=== PATIENT | female | born 1995 | race Caucasian/White ===

== ENCOUNTER 2018-07-24 11:24 | Inpatient (IN) | payer OTHER ==
[2018-07-24] MEDS ORDERED: OXYTOCIN 30 UNITS/LR 500 ML IV ×2 (12:00→17:00)
[2018-07-24] MEDS ORDERED: BUTORPHANOL 2 MG INJ IV (12:00)
[2018-07-24] MEDS ORDERED: MISOPROSTOL 200 MCG TAB PR ×2 (12:00→17:00)
[2018-07-24] MEDS ORDERED: LIDOCAINE 1% (MPF) 30 ML INJ INJ (12:00)
[2018-07-24] MEDS ORDERED: CARBOPROST 250 MCG INJ IM ×2 (12:00→17:00)
[2018-07-24] MEDS ORDERED: IBUPROFEN 600 MG TAB PO (12:00)
[2018-07-24] MEDS ORDERED: METHYLERGONOVINE 0.2 MG INJ IM ×2 (12:00→17:00)
[2018-07-24] MEDS: LACTATED RINGER'S 1,000 ML IV* ×4 (12:17→20:32)
[2018-07-24] MEDS ORDERED: AMPICILLIN 2 GM/NS (PMX) 100 ML (12:33)
[2018-07-24 12:37] LABS: ADD MAN DIFF? NO
[2018-07-24 12:40] LABS: BASOPHILS % 0.1 % (0.0-2.0); EOSINOPHILS # 0.1 10^3/ul (0.0-0.5); EOSINOPHILS % 0.8 % (0.0-7.0); HEMATOCRIT 33.2 % (37.0-47.0); HEMOGLOBIN 10.7 g/dl (12.0-16.0); LYMPHOCYTES # 1.3 10^3/ul (0.8-2.9); LYMPHOCYTES % 16.2 % (15.0-51.0); MEAN CORPUSCULAR HEMOGLOBIN 26.6 pg (29.0-33.0); MEAN CORPUSCULAR HGB CONC 32.2 g/dl (32.0-37.0); MEAN CORPUSCULAR VOLUME 82.6 fl (82.0-101.0); MEAN PLATELET VOLUME 12.8 fl (7.4-10.4); MONOCYTE # 0.5 10^3/ul (0.3-0.9); MONOCYTES % 6.7 % (0.0-11.0); NEUTROPHIL # 5.8 10^3/ul (1.6-7.5); NEUTROPHILS % 75.6 % (39.0-77.0); PLATELET COUNT 172 10^3/UL (140-415); RED BLOOD COUNT 4.02 10^6/ul (4.20-5.40); RED CELL DISTRIBUTION WIDTH 16.4 % (11.5-14.5)
[2018-07-24 12:40] LABS: WHITE BLOOD COUNT 7.7 10^3/ul (4.8-10.8)
[2018-07-24] MEDS: AMPICILLIN 2 GM/NS (PMX) 100 ML IVPB (12:47)
[2018-07-24 12:59] LABS: INR 0.87; PROTIME 11.9 Sec (11.9-14.9); PT RATIO 0.9
[2018-07-24 13:00] LABS: PARTIAL THROMBOPLASTIN TIME 24.7 Sec (25.0-35.0)
[2018-07-24 13:28] LABS: HEPATITIS B SURFACE ANTIGEN NEGATIVE (NEGATIVE)
[2018-07-24] MEDS: OXYTOCIN 30 UNITS/LR 500 ML IV ×2 (15:38→16:04)
[2018-07-24] MEDS ORDERED: AMPICILLIN 1 GM/NS (PMX) 50 ML IVPB (16:00)
[2018-07-24] MEDS: DEXTROSE 5%-LR 1,000 ML IV (16:39)
[2018-07-24] MEDS ORDERED: ONDANSETRON 4 MG INJ IV (17:00)
[2018-07-24] MEDS ORDERED: ACETAMINOPHEN 325 MG TAB PO (17:00)
[2018-07-24] MEDS ORDERED: SENNA/DOCUSATE NA (8.6MG/50MG) TAB PO (17:00)
[2018-07-24] MEDS ORDERED: ZOLPIDEM 5 MG TAB PO (17:00)
[2018-07-24] MEDS ORDERED: DIPHENHYDRAMINE 50 MG INJ IV (17:00)
[2018-07-24] MEDS ORDERED: DIBUCAINE 1% 30 GM OINT PR (17:00)
[2018-07-24] MEDS: MEDROXYPROGESTERONE 150 MG INJ SYG IM (17:00)
[2018-07-24] MEDS: IBUPROFEN 600 MG TAB PO (18:00)
[2018-07-24] MEDS: LANOLIN 7 GM TUBE TOP (18:02)
[2018-07-24] MEDS: WITCH HAZEL/GLYCERIN PAD PR (18:02)
[2018-07-24] MEDS: BENZOCAINE 20% 56 ML SPRAY TOP (18:02)
[2018-07-24 19:56] LABS: RAPID PLASMA REAGIN NONREACTIVE (NR)
[2018-07-24] MEDS: MAGNESIUM HYDROXIDE 30ML CUP PO (20:32)
[2018-07-25] MEDS: IBUPROFEN 600 MG TAB PO ×5 (00:02→23:37)
[2018-07-25] MEDS: DEXTROSE 5%-LR 1,000 ML IV ×2 (00:39→08:39)
[2018-07-25] MEDS: MEDROXYPROGESTERONE 150 MG INJ SYG IM (00:48)
[2018-07-25 08:21] LABS: ADD MAN DIFF? NO
[2018-07-25 08:27] LABS: WHITE BLOOD COUNT 10.1 10^3/ul (4.8-10.8)
[2018-07-25 08:27] LABS: ABNORMAL IP MESSAGE 1; BASOPHILS % 0.1 % (0.0-2.0); EOSINOPHILS # 0.1 10^3/ul (0.0-0.5); EOSINOPHILS % 0.8 % (0.0-7.0); HEMATOCRIT 32.7 % (37.0-47.0); HEMOGLOBIN 10.3 g/dl (12.0-16.0); LYMPHOCYTES # 1.8 10^3/ul (0.8-2.9); LYMPHOCYTES % 17.6 % (15.0-51.0); MEAN CORPUSCULAR HEMOGLOBIN 26.1 pg (29.0-33.0); MEAN CORPUSCULAR HGB CONC 31.5 g/dl (32.0-37.0); MEAN PLATELET VOLUME 13.1 fl (7.4-10.4); MONOCYTE # 0.7 10^3/ul (0.3-0.9); MONOCYTES % 6.8 % (0.0-11.0); NEUTROPHIL # 7.5 10^3/ul (1.6-7.5); NEUTROPHILS % 74.2 % (39.0-77.0); PLATELET COUNT 165 10^3/UL (140-415); RED BLOOD COUNT 3.94 10^6/ul (4.20-5.40); RED CELL DISTRIBUTION WIDTH 16.6 % (11.5-14.5)
[2018-07-25 08:34] LABS: POSITIVE DIFF @See below
[2018-07-25] MEDS: LACTATED RINGER'S 1,000 ML IV* (08:39)
[2018-07-25] MEDS: MAGNESIUM HYDROXIDE 30ML CUP PO ×2 (09:55→21:18)
[2018-07-26] MEDS: IBUPROFEN 600 MG TAB PO ×2 (05:25→11:50)
[2018-07-26] MEDS: MAGNESIUM HYDROXIDE 30ML CUP PO (09:20)
[2018-07-26] MEDS: MEASLES,MUMPS,RUBELLA VACCINE INJ SC* (09:21)
[2018-07-26] MEDS: DIPHTH/TET/ACEL PERTUSS (ADULT) 0.5 ML VIAL IM* (11:35)
== END 2018-07-26 16:29 | disposition home or self-care (01) | DRG 775 ==
LOC: OBT 11:24 → L-D 11:24 → OBT 11:41 → L-D 11:41 → PP1 17:07
PROVIDERS: Obstetrics & Gynecology
PROC: 10E0XZZ Delivery of Products of Conception, External Approach (ICD-10-PCS; principal; 2018-07-24)
DX: O80 Encounter for full-term uncomplicated delivery (principal); Z3A.38 38 weeks gestation of pregnancy; Z37.0 Single live birth
CPT/HCPCS: 62319; 76815; 85025; 85610; 85730; 86592; 86850; 86900; 86901; 87340; 90715

== ENCOUNTER 2019-07-05 18:04 | Inpatient (IN) | payer OTHER ==
[2019-07-05 19:32] LABS: ADD UMIC YES; UR ASCORBIC ACID NEGATIVE (NEGATIVE); UR BACTERIA FEW /HPF (NONE SEEN); UR BILIRUBIN (Dip) NEGATIVE (NEGATIVE); UR BLOOD (Dip) NEGATIVE (NEGATIVE); UR CLARITY CLOUDY (CLEAR); UR COLOR YELLOW (YELLOW); UR GLUCOSE (Dip) NEGATIVE (NEGATIVE); UR KETONES (Dip) 1+ mg/dL (NEGATIVE); UR LEUKOCYTE ESTERASE (Dip) 2+ Leu/ul (NEGATIVE); UR MUCUS FEW /HPF (NONE SEEN); UR NITRITE (Dip) NEGATIVE (NEGATIVE); UR RBC 4 /HPF (0-5); UR SPECIFIC GRAVITY (Dip) 1.015 (1.003-1.030); UR SQUAMOUS EPITHELIAL CELL MANY /HPF (FEW); UR TOTAL PROTEIN (Dip) 2+ mg/dl (NEGATIVE); UR UROBILINOGEN (Dip) NEGATIVE (NEGATIVE); UR WBC 100 /HPF (0-5)
[2019-07-05] MEDS: ACETAMINOPHEN 500 MG TAB PO (20:39)
[2019-07-05] MEDS: SOD CHLORIDE 0.9% 1,000 ML IV (20:40)
[2019-07-05] MEDS: BETAMET NA PHOS/AC(6 MG/ML) 2 ML INJ SYG IM (21:01)
[2019-07-05] MEDS: CEFTRIAXONE 1 GM/50 ML (PMX) 50 ML IVPB (21:01)
[2019-07-06] MEDS: SOD CHLORIDE 0.9% 1,000 ML IV ×2 (05:28→17:16)
[2019-07-06] MEDS: BETAMET NA PHOS/AC(6 MG/ML) 2 ML INJ SYG IM (21:26)
[2019-07-06] MEDS: CEFTRIAXONE 1 GM/50 ML (PMX) 50 ML IVPB (21:26)
[2019-07-07] MEDS: SOD CHLORIDE 0.9% 1,000 ML IV ×3 (00:25→09:24)
== END 2019-07-07 11:50 | disposition home or self-care (01) | DRG 832 ==
LOC: OBT 18:04 → L-D 18:04 → OBT 20:00 → L-D 20:00
DX: O23.03 Infections of kidney in pregnancy, third trimester (principal); O26.873 Cervical shortening, third trimester; N12 Tubulo-interstitial nephritis, not specified as acute or chronic; Z3A.31 31 weeks gestation of pregnancy
CPT/HCPCS: 76817; 76818; 81001; 87086